=== PATIENT | female | born 1965 | race Caucasian/White ===

== ENCOUNTER 2017-07-02 14:24 | Emergency (ER) | payer BC ==
[2017-07-02 14:46] VITALS: BP 133/79
--- NOTE | 2017-07-02 16:10 | RAD ---
INDICATION: Rib pain COMPARISON: None TECHNIQUE: Multiple views of the ribs to include PA view of the chest were obtained. FINDINGS: Bones: There is no evidence of acute rib fracture. LUNGS: The lungs are clear. There is no pneumothorax. Pleural spaces: There is no evidence of hemothorax. Other: The cardiac structures appear normal. IMPRESSION: NEGATIVE EXAMINATION.
--- NOTE | 2017-07-02 23:50 | UC ---
Back Pain HPI - HPI Summary HPI Summary: 51 y/o female presents to the urgent care c/o RT mid back pain and rib pain w/ deep breathing since this morning. Pt reports she had a URI for the past 10 days which is now resolving. She still has a mild dry cough. Pain is 8/10, sharp w/ certain movement and when she takes a deep breath. She has Hx of an occipital nerve stimulator that was place 10 years ago in her lower back due intractable migraines. She is also on pain management. she has also Hx of Kidneys stones. Bur she denies urinary symptoms or hematuria. She also denies fever, portillo pain, abdominal pain, N/V/D, DOBSON. She has been taking her pain medications as directed. - History of Current Complaint Hx Obtained From: Patient Hx Last Menstrual Period: menopausal ?: No Onset/Duration: Gradual Onset Timing: Intermittent, Lasting Seconds Severity Initially: Mild Severity Currently: Moderate Pain Intensity: 8 Pain Scale Used: 0-10 Numeric Back Pain: Is Discrete @ - RT mid back or posterior ribs Character: Sharp Aggravating Factor(s): Movement, Cough, Other - deep breathing Alleviating Factor(s): OTC Meds Associated Signs And Symptoms: Positive: Flank Pain - RT side. Negative: Swelling, Redness, Bruising, Fever, Weakness, Numbness, Tingling, Abdominal Pain , Bladder Incontinence, Bowel Incontinence, Weight Loss, Pain with Weight Bearing - Risk Factors AAA Risk Factors: Negative TAD Risk Factors: Negative Cauda Equina Risk Factors: Negative Epidural Abscess Risk Factors: Negative <Trish Rdoas - Last Filed: 07/02/17 23:41> <Sandra Tang - Last Filed: 07/04/17 07:14> - History of Current Complaint Chief Complaint: UCBackPain Stated Complaint: RIB PAIN Time Seen by Provider: 07/02/17 15:15 - Allergies/Home Medications Allergies/Adverse Reactions: Allergies Allergy/AdvReac Type Severity Reaction Status Date / Time Sulfa (Sulfonamide AdvReac Intermediate Nausea Verified 07/02/17 14:46 Antibiotics) PMH/Surg Hx/FS Hx/Imm Hx Previously Healthy: Yes Cardiovascular History: Hypertension Neurological History: Migraine Other Neurological History: neuropathy - Surgical History Surgical History: Yes Surgery Procedure, Year, and Place: 5 surguries for occipital nerve stimulator. supraorbital nerve stimulator - Family History Known Family History: Positive: Cardiac Disease, Hypertension - Social History Occupation: Employed Full-time Lives: With Family Alcohol Use: None Substance Use Type: None Substance Use Comment - Amount & Last Used: oxycontin and oxycodone Smoking Status (MU): Former Smoker Type: Cigarettes Have You Smoked in the Last Year: No When Did the Patient Quit Smoking/Using Tobacco: 2009 - Immunization History Most Recent Tetanus Shot: <5 YEARS <Trish Rodas - Last Filed: 07/02/17 23:41> Review of Systems Constitutional: Negative Skin: Negative Eyes: Negative ENT: Negative Respiratory: Cough - mild dry cough, Other - RT posterio rib pain Cardiovascular: Negative Gastrointestinal: Negative Genitourinary: Negative Motor: Negative Neurovascular: Negative Musculoskeletal: Other: - RT psoterior rib pain Neurological: Negative Psychological: Negative Is Patient Immunocompromised?: No All Other Systems Reviewed And Are Negative: Yes <Trish Rodas - Last Filed: 07/02/17 23:41> Physical Exam Triage Information Reviewed: Yes Vital Signs: Initial Vital Signs Temp 99.5 F 07/02/17 14:38 Pulse 105 07/02/17 14:38 Resp 18 07/02/17 14:38 BP 133/79 07/02/17 14:38 Pulse Ox 95 07/02/17 14:38 - Additional Comments Vital Signs Reviewed: Yes General: well developed, well nourished female sitting in the examining table w/ o any apparent distress Eyes: Positive: Conjunctiva Clear - PERRLA, EOMI, fundi grossly normal ENT: Positive: Normal ENT inspection, Hearing grossly normal, Pharynx normal, Nasal congestion - edematous and erythematous nasal mucosa, Nasal drainage - yellowish drainage, TMs normal. Negative: Tonsillar swelling, Tonsillar exudate Neck: Positive: Supple, Nontender, No Lymphadenopathy Respiratory: no orthopnea or dyspnea. Able to speak in full sentences, no retractions or accessory muscle use, no tripod position, stridor, or head bobbing. CTA bilaterally, no wheezes, rhonchi, rales or crackle CHEST: Symmetric, point tenderness over the posterior RT ribs 10-12, no swelling observed. Cardiovascular: Positive: RRR, No Murmur, Pulses Normal, Brisk Capillary Refill Abdomen Description: Positive: Nontender, No Organomegaly, Soft. Negative: CVA Tenderness (R), CVA Tenderness (L) Bowel Sounds: Positive: Present Musculoskeletal Exam: Normal Musculoskeletal: Positive: Strength Intact, ROM Intact, No Edema Neurological Exam: Normal Psychological Exam: Normal Skin Exam: Normal <Trish Rodas - Last Filed: 07/02/17 23:41> Vital Signs: Initial Vital Signs Temp 99.5 F 07/02/17 14:38 Pulse 105 07/02/17 14:38 Resp 18 07/02/17 14:38 BP 133/79 07/02/17 14:38 Pulse Ox 95 07/02/17 14:38 <Abdi Tanga - Last Filed: 07/04/17 07:14> Back Pain Course/Dx - Course Course Of Treatment: 51 y/o female presents to the urgent care c/o RT mid back pain and rib pain w/ deep breathing since this morning. Pt reports she had a URI for the past 10 days which is now resolving. She still has a mild dry cough. Pain is 8/10, sharp w/ certain movement and when she takes a deep breath. She has Hx of an occipital nerve stimulator that was place 10 years ago in her lower back due intractable migraines. She is also on pain management. she has also Hx of Kidneys stones. Bur she denies urinary symptoms or hematuria. She also denies fever, portillo pain, abdominal pain, N/V/D, DOBSON. She has been taking her pain medications as directed.Hx obtained. Pt w/ point tendrness over the RT posterior back ribs 10-12 and CVA tenderness B/L on examination. O2Sat: 95% . Pt w/ Hx of heavy every day smoking. UA ordered: results: negative.At this point I have no suspicion for Kidney stones since patient has no hematuria and no flank tenderness. Rib X-ray ordered: impression : negative. Pt w/ probably a musculosketal spasm. Pt Rx Flexeril PO and advised to perform deep breathing often despite pain. To continue w/ her pain medications to alleviate symptoms. Advised to observe closely what postures maybe causing the back spasm. Patient was instructed to the f/u PCP if symptoms do not improve or worsen. Patient understands and agrees. Plan of care was discussed with the patient and patient understands and agrees. All questions were answered at patient satisfaction. Pt left clinic hemodynamically stable. - Differential Dx/Diagnosis Differential Diagnosis/HQI/PQRI: Arthritis, Renal Colic, Strain, Sprain, Other - rib fracture, pneumothorax, muscle spasm, pyelonephritis Provider Diagnoses: 1-Acute rib pain. 2-Muscle spasm <Trish Rodas - Last Filed: 07/02/17 23:41> Discharge <Trish Rodas - Last Filed: 07/02/17 23:41> <Sandra Tang - Last Filed: 07/04/17 07:14> - Discharge Plan Condition: Stable Disposition: HOME Prescriptions: Cyclobenzaprine TAB* [Flexeril 10 MG TAB*] 10 mg PO TID PRN #15 tab PRN Reason: Spasms - Back Patient Education Materials: Muscle Spasm (ED) Referrals: Shannan Guzman MD [Primary Care Provider] - 3 Days Additional Instructions: 1-Please continue taking your Pain medication and directed by pain management. 2- Take Flexeril PO as directed for muscle spasm. Please do not drive while taking the medication. Please take deep breath frequently despite pain 3- Avoid strenuous exercise of heavy lifting. 4- Please follow up your PCP in 1 week if not improvement of symptoms, for further management. Attestation Statement User Type: Provider - I was available for consult. This patient was seen by the JACK. The patient was not presented to, seen by, or examined by me. Husseinj <Sandra Tang - Last Filed: 07/04/17 07:14>
== END 2017-07-02 16:35 | disposition home or self-care (01) ==
LOC: UCEAST 14:24
DX: R07.81 Pleurodynia (principal); M62.830 Muscle spasm of back; I10 Essential (primary) hypertension; G43.909 Migraine, unspecified, not intractable, without status migrainosus; G62.9 Polyneuropathy, unspecified; Z88.2 Allergy status to sulfonamides; Z87.891 Personal history of nicotine dependence
CPT/HCPCS: 81003; 99212; G0463